=== PATIENT | male | born 1985 | race Caucasian/White ===

== ENCOUNTER 2018-05-25 22:39 | Emergency (ER) | payer OTHER ==
[~2018-05-25] VITALS: Ht 170.2 cm; Wt 77.1 kg
--- NOTE | 2018-05-25 23:20 | NUR ---
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 DENIES DYSURIA AND HEMATURIA. SEVERE, SUDDEN ONSET PAIN. RESP EVEN UNLABORED. PT GUARDING, MOANING IN PAIN. SKIN WARM DRY. IN ER BED 07.
[2018-05-25 23:26] LABS: BASOPHILS # (AUTO) 0.1 /CMM (0.0-0.2); BASOPHILS % (AUTO) 1.1 % (0.0-2.0); HEMATOCRIT 44 % (39-51); HEMOGLOBIN 15.1 g/dL (13.5-17.5); LYMPHOCYTES # (AUTO) 3.7 /CMM (0.8-4.8); LYMPHOCYTES % (AUTO) 37.1 % (20.0-44.0); MEAN CORPUSCULAR HGB CONC 35 g/dl (31.0-36.0); MEAN CORPUSCULAR VOLUME 84 fL (80-96); MONOCYTES # (AUTO) 0.8 /CMM (0.1-1.30); MONOCYTES % (AUTO) 7.9 % (2.0-12.0); NEUTROPHILS # (AUTO) 5.1 /CMM (1.8-8.9); NEUTROPHILS % (AUTO) 50.9 % (43.0-81.0); PLATELET COUNT (AUTO) 221 /CMM (150-450)
[2018-05-25] MEDS ORDERED: KETOROLAC TROMETHAMINE INJ 30 MG/ML VIAL IV ONE (23:30)
[2018-05-25] MEDS ORDERED: ONDANSETRON HCL/PF 4 MG/2 ML VIAL IVP ONE (23:30)
[2018-05-25] MEDS ORDERED: IV NS 0.9% 500 ML BAG IV ONE (23:30)
[2018-05-25] MEDS ORDERED: KETOROLAC TROMETHAMINE INJ 30 MG/ML VIAL ONE (23:30)
[2018-05-25] MEDS ORDERED: ONDANSETRON HCL/PF 4 MG/2 ML VIAL ONE (23:30)
[2018-05-25 23:33] LABS: CALCIUM, SERUM 9.5 mg/dL (8.5-10.1); CREATININE 1.2 mg/dL (0.6-1.3); POTASSIUM 3.6 mmol/L (3.5-5.1)
[2018-05-25 23:58] LABS: APPEARANCE,URINE SL CLOUDY (CLEAR); BILIRUBIN,URINE NEGATIVE (NEGATIVE); BLOOD, URINE NEGATIVE Ery/uL (NEGATIVE); COLOR,URINE YELLOW (YELLOW); KETONES,URINE TRACE (NEGATIVE); LEUKOCYTE ESTERASE ,URINE NEGATIVE (NEGATIVE); NITRITE, URINE NEGATIVE (NEGATIVE); PROTEIN,URINE NEGATIVE (NEGATIVE); UGLUCOSE NEGATIVE (NEGATIVE); UROBILINOGEN,URINE 0.2 EU/dL (0.2)
[2018-05-26 00:05] LABS: BACTERIA,URINE Few /HPF (None Seen); RBC,URINE 0-2 /HPF (0-2); SQUAMOUS EPITHELIAL CELL,UR Few /HPF (None Seen)
[2018-05-26 00:06] LABS: URINE AMORPHOUS PHOSPHATES Few /HPF (None Seen)
--- NOTE | 2018-05-26 00:20 | NUR ---
PT RESTING COMFORTABLY, REPORTS PAIN IS COMPLETELY RELIEVED. NAD NOTED.
--- NOTE | 2018-05-26 01:24 | NUR ---
Patient discharged to home in stable condition. Written and verbal after care instructions given. Patient verbalizes understanding of instruction. IV removed. Catheter intact and site benign. Pressure and 4x4 applied to site. No bleeding noted. AMBULATORY STEADY GAIT
[2018-05-26 01:26] VITALS: BP 121/74
== END 2018-05-26 01:27 | disposition home or self-care (01) ==
LOC: ER 22:42
DX: M54.9 Dorsalgia, unspecified (principal); Z87.442 Personal history of urinary calculi
CPT/HCPCS: 36415; 74176; 80048; 81001; 85025; 96374; 96375; 99284; A4606; J1885; J2405; J7040; Z7610; 81000-TC

== ENCOUNTER 2019-01-17 06:33 | Emergency (ER) | payer OTHER ==
[~2019-01-17] VITALS: Ht 170.2 cm; Wt 63.5 kg
--- NOTE | 2019-01-17 06:45 | NUR ---
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 PT ALSO C/O NAUSEA. PT APPEARS EXTERMELY UNCOMFORTABLY, SCREAMING IN PAIN. PT DENIES DYSURIA, HEMATURIA. PT AAOX4. RESPIRATIONS EVEN AND UNLABORED. SKIN INTACT. VITAL SIGNS STABLE. AT BEDSIDE. WILL CONTINUE TO MONITOR
--- NOTE | 2019-01-17 06:45 | NUR ---
IV INITIATED R FOREARM 18G. LABS DRAWN FROM SITE AND SENT TO LAB. IV INTACT AND PATENT
--- NOTE | 2019-01-17 06:52 | NUR ---
Bertin chandler in [facility] - 01/17/19 at 0653 by YENY AALIYAH JEAN) CONTACT INFORMATION: [phone]
[2019-01-17 06:53] LABS: BASOPHILS # (AUTO) 0.1 /CMM (0.0-0.2); BASOPHILS % (AUTO) 1.2 % (0.0-2.0); EOSINOPHILS % (AUTO) 3.3 % (0.0-6.0); HEMATOCRIT 46 % (39-51); HEMOGLOBIN 15.9 g/dL (13.5-17.5); LYMPHOCYTES # (AUTO) 4.3 /CMM (0.8-4.8); LYMPHOCYTES % (AUTO) 35.1 % (20.0-44.0); MEAN CORPUSCULAR HGB CONC 35 g/dl (31.0-36.0); MEAN CORPUSCULAR VOLUME 85 fL (80-96); MONOCYTES % (AUTO) 7.8 % (2.0-12.0); NEUTROPHILS # (AUTO) 6.5 /CMM (1.8-8.9); NEUTROPHILS % (AUTO) 52.6 % (43.0-81.0); PLATELET COUNT (AUTO) 208 /CMM (150-450); WHITE BLOOD COUNT (AUTO) 12.3 K/uL (4.3-11.0)
--- NOTE | 2019-01-17 06:53 | NUR ---
[facility] () CONTACT INFORMATION: [phone]
--- NOTE | 2019-01-17 06:55 | NUR ---
PT STILL EXTREMELY UNCOMFORTABLY AND SCREAMING IN PAIN. PT STATES "I'VE HAD KIDNEY STONES BEFORE AND IT'S NEVER FELT LIKE THIS" ER MD AWARE
[2019-01-17] MEDS ORDERED: HYDROMORPHONE 1 MG/1 ML DISP.SYRIN ONE ×2 (06:58→09:26)
[2019-01-17] MEDS ORDERED: MORPHINE SULFATE INJ 4 MG/ML DISP.SYRIN ONE (06:59)
[2019-01-17] MEDS ORDERED: KETOROLAC TROMETHAMINE 15 MG/ML VIAL ONE (06:59)
[2019-01-17] MEDS ORDERED: ONDANSETRON HCL/PF 4 MG/2 ML VIAL ONE (06:59)
[2019-01-17 07:00] LABS: CALCIUM, SERUM 9.1 mg/dL (8.5-10.1); CREATININE 1.1 mg/dL (0.6-1.3); POTASSIUM 3.9 mmol/L (3.5-5.1)
[2019-01-17] MEDS ORDERED: KETOROLAC TROMETHAMINE INJ 30 MG/ML VIAL IV ONE (07:00)
[2019-01-17] MEDS ORDERED: MORPHINE SULFATE INJ 2 MG/ML DISP.SYRIN IV ONE (07:00)
[2019-01-17] MEDS ORDERED: IV NS 0.9% 1,000 ML BAG IV ONE (07:00)
[2019-01-17] MEDS ORDERED: ONDANSETRON HCL/PF 4 MG/2 ML VIAL IVP ONE (07:00)
[2019-01-17] MEDS ORDERED: HYDROMORPHONE 1 MG/1 ML DISP.SYRIN IV ONE ×2 (07:00→09:30)
--- NOTE | 2019-01-17 07:00 | NUR ---
PT UNABLE TO PROVIDE URINE SAMPLE AT THIS TIME. MD GUTHRIE
--- NOTE | 2019-01-17 07:20 | NUR ---
PT BROUGHT BY RADIOLOGY TO CT
--- NOTE | 2019-01-17 07:27 | NUR ---
PT ENDORSED TO [facility] FOR [facility]
[2019-01-17 09:45] VITALS: BP 124/85
--- NOTE | 2019-01-17 09:53 | NUR ---
IIV removed. Catheter intact and site benign. Pressure and 4x4 applied to site. No bleeding noted.Patient discharged to home in stable condition. Written and verbal after care instructions given. Patient verbalizes understanding of instruction.
[2019-01-17 10:01] LABS: APPEARANCE,URINE Clear (CLEAR); BILIRUBIN,URINE Negative (NEGATIVE); BLOOD, URINE Large Ery/uL (NEGATIVE); COLOR,URINE Yellow (YELLOW); KETONES,URINE Negative (NEGATIVE); LEUKOCYTE ESTERASE ,URINE Negative (NEGATIVE); NITRITE, URINE Negative (NEGATIVE); PROTEIN,URINE 30 mg/dl (NEGATIVE); UGLUCOSE Negative (NEGATIVE); UROBILINOGEN,URINE 0.2 EU/dL (0.2)
[2019-01-17 10:13] LABS: BACTERIA,URINE Few /HPF (None Seen); RBC,URINE TOO NUMEROUS TO COUN /HPF (0-2); SQUAMOUS EPITHELIAL CELL,UR Few /HPF (None Seen); WBC,URINE 0-2 /HPF (0-3)
== END 2019-01-17 10:04 | disposition home or self-care (01) ==
LOC: ER 06:36
DX: N13.2 Hydronephrosis with renal and ureteral calculous obstruction (principal)
CPT/HCPCS: 36415; 74176; 80048; 81001; 85025; 87086; 96374; 96375; 96376; 99284; J1170 ×2; J1885; J2270; J2405; J7030; 81000-TC

== ENCOUNTER 2019-01-19 02:19 | Emergency (ER) | payer OTHER ==
[~2019-01-19] VITALS: Ht 167.6 cm; Wt 68.0 kg
--- NOTE | 2019-01-19 02:30 | NUR ---
PT BIBSELF C/O R FLANK PAIN X 2HOURS. PT HAS HX OF KIDNEY STONES. PT RESTLESS AND MOANING IN PAIN. 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 PENDING EVAL FROM ER .
--- NOTE | 2019-01-19 02:37 | NUR ---
18G LAC, BLOOD WITHDRAWN AND SENT WITH COST ANALYST.
[2019-01-19] MEDS ORDERED: MORPHINE SULFATE INJ 4 MG/ML DISP.SYRIN ONE (02:38)
[2019-01-19] MEDS ORDERED: ONDANSETRON HCL/PF 4 MG/2 ML VIAL ONE (02:38)
[2019-01-19] MEDS ORDERED: KETOROLAC TROMETHAMINE INJ 30 MG/ML VIAL ONE (02:38)
[2019-01-19 02:51] LABS: BASOPHILS # (AUTO) 0.1 /CMM (0.0-0.2); BASOPHILS % (AUTO) 1.2 % (0.0-2.0); EOSINOPHILS % (AUTO) 2.5 % (0.0-6.0); HEMATOCRIT 44 % (39-51); HEMOGLOBIN 15.1 g/dL (13.5-17.5); LYMPHOCYTES # (AUTO) 5.3 /CMM (0.8-4.8); LYMPHOCYTES % (AUTO) 41.7 % (20.0-44.0); MEAN CORPUSCULAR HGB CONC 35 g/dl (31.0-36.0); MEAN CORPUSCULAR VOLUME 85 fL (80-96); MONOCYTES # (AUTO) 0.9 /CMM (0.1-1.30); NEUTROPHILS % (AUTO) 47.6 % (43.0-81.0); PLATELET COUNT (AUTO) 194 /CMM (150-450); RED BLOOD CELL COUNT(AUTO) 5.14 MIL/uL (4.5-6.0); WHITE BLOOD COUNT (AUTO) 12.7 K/uL (4.3-11.0)
[2019-01-19] MEDS ORDERED: KETOROLAC TROMETHAMINE INJ 30 MG/ML VIAL IV ONE (03:00)
[2019-01-19] MEDS ORDERED: MORPHINE SULFATE INJ 2 MG/ML DISP.SYRIN IV ONE (03:00)
[2019-01-19] MEDS ORDERED: IV NS 0.9% 1,000 ML BAG IV ONE (03:00)
[2019-01-19] MEDS ORDERED: ONDANSETRON HCL/PF 4 MG/2 ML VIAL IVP ONE (03:00)
[2019-01-19 03:02] LABS: CREATININE 1.1 mg/dL (0.6-1.3); POTASSIUM 3.4 mmol/L (3.5-5.1)
--- NOTE | 2019-01-19 03:08 | NUR ---
PT TAKEN TO CT VIA [facility].
[2019-01-19] MEDS ORDERED: HYDROMORPHONE 1 MG/1 ML DISP.SYRIN ONE ×2 (03:27→08:30)
[2019-01-19] MEDS ORDERED: HYDROMORPHONE 1 MG/1 ML DISP.SYRIN IV ONE ×2 (03:30→08:30)
[2019-01-19 03:47] LABS: APPEARANCE,URINE Clear (CLEAR); BILIRUBIN,URINE Negative (NEGATIVE); BLOOD, URINE Small Ery/uL (NEGATIVE); COLOR,URINE Yellow (YELLOW); KETONES,URINE Negative (NEGATIVE); LEUKOCYTE ESTERASE ,URINE Negative (NEGATIVE); NITRITE, URINE Negative (NEGATIVE); PROTEIN,URINE Negative (NEGATIVE); UGLUCOSE Negative (NEGATIVE)
--- NOTE | 2019-01-19 04:25 | NUR ---
PT RESTING IN BED, NAD NOTED. WILL CONTINUE TO MONITOR.
[2019-01-19 05:04] LABS: RBC,URINE 0-2 /HPF (0-2); WBC,URINE 0-2 /HPF (0-3)
[2019-01-19 05:05] LABS: BACTERIA,URINE Few /HPF (None Seen); MUCUS,URINE Moderate /LPF (None Seen); SQUAMOUS EPITHELIAL CELL,UR Rare /HPF (None Seen)
[2019-01-19] MEDS ORDERED: PIPERACILLIN /TAZOBACTAM 3.375 G in IV D5W 50 ML IV ONE (05:30)
[2019-01-19] MEDS ORDERED: PIPERACILLIN /TAZOBACTAM 3.375 G VIAL IV ONE (05:35)
--- NOTE | 2019-01-19 07:06 | NUR ---
PT ACCEPTED AT [facility]. DR[facility] TERRAZAS. ROOM 734A. CALL FOR REPORT [phone]
--- NOTE | 2019-01-19 07:10 | NUR ---
SPOKE WITH [facility] AT [facility] TOLD TO CALL BACK IN 15-20 MIN FOR REPORT.
--- NOTE | 2019-01-19 07:22 | NUR ---
REPORT GIVEN TO I[facility]LA [facility] FOR [facility]NE.
--- NOTE | 2019-01-19 07:27 | NUR ---
[id number]
--- NOTE | 2019-01-19 07:31 | NUR ---
PATIENT RECEIVED RESTING INSIDE ROOM. AWAKE, ALERT AND ORIENTED X 3. NO ACUTE DISTRESS. C/O LEFT FLANK PAIN BUT REPORTS BEARABLE AT THIS TIME. AT BEDSIDE. WILL CONTINUE TO MONITOR
--- NOTE | 2019-01-19 07:53 | NUR ---
PLACED CALL TO [facility] ([phone]), GAVE REPORT TO PHYLLIS PAINTING AND MARIA T PAINTING
[2019-01-19 08:24] VITALS: BP 125/67
--- NOTE | 2019-01-19 08:36 | NUR ---
TRANSPORTATION PRESENT AT UNIT TO PICK PATIENT UP FOR TRANSFER TO [facility]. PATIENT WITH REPORT PAIN ON RIGHT FLANK 01/09. ER MD MADE AWARE, WITH NEW ORDER FOR 1 mg DILAUDID IV. ORDER NOTED AND CARRIED OUT.
--- NOTE | 2019-01-19 08:39 | NUR ---
PATIENT DISCHARGED FROM UNIT VIA GURNEY IN STABLE CONDITION. NO ACUTE DISTRESS. REPORTS FEELING OF PAIN BEING RELIEVED. NO CHANGES IN LOC NOTED. TRANSFER INSTRUCTIONS AND EDUCATION PROVIDED TO PATIENT AND AND BOTH VERBALIZED UNDERSTANDING. IN ON LEFT AC INTACT AND PATENT. CD COPY OF CT SCAN PROVIDED WITH TRANSFER PAPERWORK. ER MD AWARE OF TRANSFER
== END 2019-01-19 08:44 | disposition short-term general hospital (02) ==
LOC: ER 02:23
DX: N13.2 Hydronephrosis with renal and ureteral calculous obstruction (principal)
CPT/HCPCS: 36415; 74176; 80048; 81001; 85025; 96365; 96375; 96376; 99285; J1170 ×2; J1885; J2270; J2405; J2543 ×2; J7030; J7060; 81000-TC

== ENCOUNTER → 2020-03-07 | Emergency (ER) | payer OTHER ==
[~2020-03-07] VITALS: Ht 177.8 cm; Wt 80.7 kg
[2020-03-07 22:06] VITALS: BP 135/64
--- NOTE | 2020-03-07 22:10 | NUR ---
BIBS FOR C/O COUGH X 1 WK. WAS TESTED + FOR COVID 14 DAYS AGO. DENIED SOB OR FEVER, VSS. WILL CONT TO MONITOR
--- NOTE | 2020-03-07 22:40 | NUR ---
COVID SWAB COLLECTED AND SENT TO LAB,
--- NOTE | 2020-03-07 23:11 | NUR ---
Patient discharged to home in stable condition. Written and verbal after care instructions given. Patient verbalizes understanding of instruction and RX. Pt ambuated with gait. vss.
--- NOTE | 2020-03-07 23:15 | NUR ---
unable to discharge due to meditec
--- NOTE | 2020-03-08 22:11 | NUR ---
REC'D POS COVID RESULTS. AWARE
== END | disposition home or self-care (01) ==
LOC: ER 22:01
DX: U07.1 COVID-19 (principal); Z87.442 Personal history of urinary calculi
CPT/HCPCS: 71045; 99284; C9803; U0003

== ENCOUNTER 2021-08-11 22:32 | Emergency (ER) | payer OTHER ==
[~2021-08-11] VITALS: Ht 170.2 cm; Wt 77.1 kg
[2021-08-11 22:49] VITALS: BP 144/72
[2021-08-12] MEDS ORDERED: AMOX-430 PO (00:49)
--- NOTE | 2021-08-12 00:55 | NUR ---
Patient discharged to home in stable condition. Written and verbal after care instructions given. Patient verbalizes understanding of instruction.
== END 2021-08-12 00:55 | disposition home or self-care (01) ==
LOC: ER 22:41
DX: J02.9 Acute pharyngitis, unspecified (principal); R05.9 Cough, unspecified; Z20.822 Contact with and (suspected) exposure to COVID-19; R03.0 Elevated blood-pressure reading, without diagnosis of hypertension; Z87.442 Personal history of urinary calculi
CPT/HCPCS: 71045; 87426; 99284; C9803

== ENCOUNTER 2025-04-17 19:22 | Emergency (ER) | payer MEDICAID, OTHER ==
[~2025-04-17] VITALS: Ht 175.3 cm; Wt 99.8 kg
[~2025-04-17 19:22] MED LIST: AMOX-430 PO
[2025-04-17] MEDS ORDERED: IOHEXOL-300 100 ML VIAL IV ONE (19:49)
[2025-04-17] MEDS ORDERED: IV NS 0.9% 250 ML IV ONE (19:50)
[2025-04-17] MEDS ORDERED: CT SWABBABLE VALVE TRANS SET 1 EA INFUS.SET MC ONE (19:50)
[2025-04-17] MEDS ORDERED: KETOROLAC TROMETHAMINE INJ 30 MG/ML VIAL ONE (19:57)
[2025-04-17] MEDS: KETOROLAC TROMETHAMINE INJ 30 MG/ML VIAL IV ONE (20:03)
[2025-04-17 20:14] LABS: PLATELET COUNT (AUTO) 243 K/uL (150-450); RED BLOOD CELL COUNT(AUTO) 5.40 MIL/uL (4.5-6.0); RED CELL DISTRIBUTION WIDTH 13.7 % (11.5-15.0); WHITE BLOOD COUNT (AUTO) 11.2 K/uL (4.3-11.0)
[2025-04-17 20:20] LABS: CALCIUM, SERUM 9.5 mg/dL (8.5-10.1); CREATININE 0.8 mg/dL (0.6-1.3); SODIUM SERUM 140.0 mmol/L (136-145); UREA NITROGEN, BLOOD 12.0 mg/dL (7-18)
[2025-04-17] MEDS ORDERED: IBUP-1490 PO (21:35)
[2025-04-17] MEDS ORDERED: METH4TAB17 PO (21:35)
[2025-04-17 21:45] VITALS: BP 149/116; TEMP 98.4; O2SAT 98
== END 2025-04-17 21:45 | disposition home or self-care (01) ==
LOC: ER 19:26
DX: M54.2 Cervicalgia (principal); R51.9 Headache, unspecified; Z87.442 Personal history of urinary calculi
CPT/HCPCS: 99285; 96374; 70491; 85025; 80048; 36415; J1885; J7050; Q9967